=== PATIENT | female | born 1935 | race Caucasian/White ===

== ENCOUNTER 2017-03-11 17:14 | Emergency (ER) | payer MEDICARE ==
[~2017-03-11] VITALS: Ht 154.9 cm; Wt 57.7 kg
[~2017-03-11 17:14] MED LIST: ASC500 PO; BILB1CAP PO; CALC-176 PO; CHOL10008 PO; DICL75TA PO; ESTROGEL TOP; FLAX100031 PO; GLUC-120 PO; MULT-64 PO; NITR0.4T SL
[2017-03-11 17:29] VITALS: BP 132/73; PULSE 68; RESP 16; O2SAT 99
[2017-03-11 17:38] LABS: BASOPHILS % (AUTO) 0.4 % (0-3); EOSINOPHILS % (AUTO) 2.9 % (0-5); MONOCYTES % (AUTO) 8.4 % (4-12); Mean Corpuscular Hemoglobin 31.5 pg (27.0-35.0); Mean Corpuscular Volume 95.5 fL (81-100); NEUTROPHILS % (AUTO) 43.3 % (40-74); Platelet Count 203 bil/L (150-400)
[2017-03-11 18:00] VITALS: BP 128/62; PULSE 66; RESP 16; O2SAT 97
[2017-03-11 18:09] LABS: TROPONIN T < 0.010 ug/L (0.0-0.011)
--- NOTE | 2017-03-11 18:12 | ED.REPORT ---
HPI-General Illness Date of Service Mar 11, 2017 ED Provider: Dr. Cason Pt is an 81 y/o female w/ a hx of hyperlipidemia presenting to the ED via EMS w / her due to an episode of severe epigastric/RUQ pain radiating upward into the chest which lasted about 1 hour and occurred at 16:00 today. She describes the pain as a constant tightness. At time of onset she was sitting in a chair at rest. Her pain is now completely resolved. The patient ate about prior to the pain, has never experienced it before, and it is not exacerbated or relieved by anything. She denies SOB. Pt denies history of GERD, gastric ulcers, new medications. She denies diarrhea. The only medication she takes is for cholesterol. The only abdominal surgery she has had was a hysterectomy. Nursing Notes Stated Complaint: EPIGASTRIC PAIN Chief Complaint: Chest Pain Nursing Notes Reviewed: Yes Allergies: Uncoded Allergies: SHELLFISH (Allergy, Unknown, 03/11/17) SULFA (Allergy, Unknown, 03/11/17) Scheduled ([Estrogel]) 2 GM TOP 3XW Ascorbic Acid-Expunged Drug, Do Not Renew! (Vitamin C-Expunged Drug, Do Not Renew!) 500 Mg Tablet 500 MG PO DAILY Bilberry (Bilberry Extract) 1 Each Capsule 100 MG PO BID Cash Carb/Vitamin D3-Expunged, Do Not Renew! (Calcium 500+D -Expunged, Do Not Renew!) 1 Each Tablet 1 EACH PO BID Cholecalciferol-Expunged Drug, Do Not Renew! (Vitamin D3-Expunged Drug, Do Not Renew!) 1,000 Unit Tab.chew 1,000 UNIT PO DAILY Diclofenac-Expunged Drug, Do Not Renew! (Diclofenac-Expunged Drug, Do Not Renew! ) 75 Mg Tablet.dr 75 MG PO BID Flaxseed Oil (Flax Seed Oil) 1,000 Mg Capsule 1,300 MG PO BID Gluc 2KCL/Chondr/Rey Hy/Hy Ac (Glucosamine & Chondroitin Cap) 1 Each Capsule 1 EACH PO BID Multivitamins-Expunged Drug, Do Not Renew! (Multivitamins-Expunged Drug, Do Not Renew!) 1 Each Tab.chew 1 EACH PO DAILY Scheduled PRN Nitroglycerin-Expunged Drug, Do Not Renew! (Nitroglycerin SL-Expunged Drug, Do Not Renew!) 0.4 Mg Tab.subl 0.4 MG SL PRN General Time Seen by MD: 18:11 Chief Complaint Abdominal pain Hx Obtained From: Patient Arrived By: Walk-in Sudden in Onset?: Yes Onset Occurred: 1 - 4 hours ago Symptom Duration: 46 - 59 minutes Location: : Abdomen Quality: Painful Severity: Current: No pain currently Severity: Maximum: Severe Similar Sx Previous: No Past Medical History Past Medical History Hyperlipidemia Diverticulitis Arthritis Past Surgical History Hysterectomy Smoking History Unknown if Ever Smoker Ambulatory Status Independent Review of Systems Full Review of Systems Constitutional: Denies: Chills, Fever Respiratory: Reports: Shortness of breath, Denies: Non-productive cough Cardiovascular: Reports: Chest pain GI: Reports: Abdominal pain, Denies: Bloody/tarry stool, Constipation, Diarrhea, Nausea, Vomiting Female: Denies: Dysuria, Flank pain Complete sys rev & neg: except as marked. Physical Exam Vital Signs Vital Signs Date Time Temp Pulse Resp B/P Pulse Ox O2 Delivery O2 Flow Rate FiO2 03/11/17 20:56 36.4 67 14 138/67 98 Room Air 03/11/17 19:00 70 14 141/70 96 Room Air 03/11/17 18:00 66 16 128/62 97 Room Air 03/11/17 17:29 36.8 68 16 132/73 99 Room Air Initial VS: Reviewed, Vital signs normal Head / Eyes: Atraumatic, Normocephalic, PERRL ENT: Mucous membranes moist, Conjunctiva normal, No scleral icterus Neck: Supple, Full range of motion Cardiovascular: Regular rate & rhythm, Heart sounds normal, Intact distal pulses Extremities: Vascular intact, Neuro intact, No swelling, No tenderness Skin: Warm, Dry, No cyanosis Neurologic: Alert, Oriented, Nonfocal Psychiatric: Mood/affect normal, Behavior normal, Normal thought content General/Constitutional: Awake, Alert, No acute distress, Well appearing, Well developed, Well hydrated, Well nourished, Cooperative, Not toxic appearing Respiratory / Chest: Breath sounds NL, Breath sounds = bilat, No respiratory distress, No rales, No rhonchi, No wheezing, No retractions, No stridor, No chest tenderness Abdomen: Atraumatic, Soft, Non-tender, No guarding, No rebound, BS normoactive , No distention, No palpable mass Tenderness/Guarding/Rebound: Negative: Lacy's sign positive Interpretation & Diagnostics Interpretation & Diagnostics: US abdomen: IMPRESSION: Cholelithiasis however no other sonographic criteria for acute cholecystitis. Please correlate clinically and with LFTs. Dictated by: Jeremias Sanchez M.D. on 03/11/2017 at 19:46 Approved by: Jeremias Sanchez M.D. on 03/11/2017 at 19:48 Lab Results Interpretation Result Diagram: 03/11/17 1734 03/11/17 1734 Test 03/11/17 17:34 03/11/17 19:00 White Blood Count 5.6th/mm3 (3.8-10.1) Red Blood Count 4.26mil/mm3 (3.90-5.20) Hemoglobin 13.4g/dL (12.0-15.6) Hematocrit 40.7% (35.0-46.0) Mean Corpuscular Volume 95.5fL (81-100) Mean Corpuscular Hemoglobin 31.5pg (27.0-35.0) Mean Corpuscular Hemoglobin Concent 32.9% (32.0-37.0) Red Cell Distribution Width 13.2% (12.3-15.4) Platelet Count 203bil/L (150-400) Neutrophils (%) (Auto) 43.3% (40-74) Lymphocytes (%) (Auto) 44.8% (14-46) Monocytes (%) (Auto) 8.4% (4-12) Eosinophils (%) (Auto) 2.9% (0-5) Basophils (%) (Auto) 0.4% (0-3) Sodium Level 142mEq/L (134-144) Potassium Level 4.0mEq/L (3.5-5.2) Chloride Level 102mEq/L (97-108) Carbon Dioxide Level 25mmol/L (18-29) Blood Urea Nitrogen 31mg/dL (8-27) Creatinine 0.61mg/dL (0.57-1.00) Estimat Glomerular Filtration Rate 135mL/min (>59) Glucose Level 106mg/dL (60-99) Calcium Level 9.6mg/dL (8.5-10.1) Magnesium Level 2.2mg/dL (1.6-2.6) Total Bilirubin 0.6mg/dL (0.0-1.2) Aspartate Amino Transf (AST/SGOT) 118U/L (0-50) Alanine Aminotransferase (ALT/SGPT) 40U/L (0-32) Alkaline Phosphatase 74U/L (25-165) Total Protein 7.1g/dL (6.4-8.4) Albumin 4.2g/dL (3.4-5.0) Troponin T < 0.010ug/L (0.0-0.011) ECG Interpretation ECG Interpretation: Sinus rhythm rate [address] Borderline [address] pattern No ST or T changes No prior available for comparison Time: 18:31 Interpreted by: ED physician Normal ECG Interpretation: Normal rate, Normal sinus rhythm, No acute ischemic changes, Normal axis, Normal intervals, Adequate tracing X-Ray Chest Interpretation Chest Xray Interpretation: IMPRESSION: No acute disease Dictated by: Jeremias Sanchez M.D. on 03/11/2017 at 18:29 Approved by: Jeremias Sanchez M.D. on 03/11/2017 at 18:30 View: Portable, 1 view Interpretation / Wet Read by: Interpret - Radiologist Re-Eval/Medical Decision Med Decision/Clinical Course Pt is an 81 y/o female w/ a hx of hyperlipidemia presenting to the ED via EMS w / her due to an episode of severe epigastric/RUQ pain radiating upward into the chest which lasted about 1 hour and occurred at 16:00 today. Here in the emergency department the patient is afebrile, hemodynamically stable in no apparent distress. Abdominal examination is completely benign. Presentation seems biliary in nature but differential diagnosis includes acute coronary syndrome. Presentation unconvincing for pulmonary embolism. GERD/gastritis is another possibility Based upon examination my suspicion for acute surgical process is very low. Meds given: GI cocktail. Thereafter, patient reported significant subjective improvement. Labs notable as below: CBC:Unremarkable CMP: Notable for BUN of 31, creatinine of 0.61, AST 118, ALT 40, alk phosphate 74, total bili 0.6 Serial troponins were negative EKG: Sinus rhythm rate 68 Borderline RBBB pattern No ST or T changes No prior available for comparison Normal rate, Normal sinus rhythm, No acute ischemic changes, Normal axis, Normal intervals, Adequate tracing Chest x-ray: IMPRESSION: No acute disease Based on concern for acute biliary process right upper quadrant ultrasound obtained as below: Cholelithiasis however no other sonographic criteria for acute cholecystitis. Please correlate clinically and with LFTs. Given patient's advanced age and mildly elevated transaminases patient was seen and evaluated by general surgeon Dr. Ortiz. He recommends discharge and will arrange for outpatient clinic follow-up. Serial abdominal examinations remained benign. I am reassured by EKG and serial negative troponins at presentation is not cardiac in nature. Patient is now feeling much better and I do not feel that hospitalization or acute interventions are indicated. Prior to discharge follow-up and return precautions were reviewed in detail with the patient who verbalized understanding and agreement with the plan. The patient was discharged in stable condition. Time of Eval: 20:45 Re-Evaluation/Progress Note: Pt rechecked. Informed pt of plan for treatment. Pt understands and agrees with plan for treatment. F/U instructions and RTER warnings given. All questions addressed. Consultation : Referral / Consult Name: Brad Ortiz MD Consulted With: Surgeon Call Returned at: 20:44 Rubber Tester: Will see patient, Agrees with eval, Agrees with plan Note: Evaluated pt in the ED. Recommended dc and f/u in clinic. Counseled Regarding: Diagnosis, Lab results, Need for follow-up, When/why to return to ED Discharge & Departure Primary Impression: Cholelithiasis Cholelithiasis location: gallbladder Cholecystitis presence: without cholecystitis Biliary obstruction: without biliary obstruction Qualified Code : K80.20 - Calculus of gallbladder without cholecystitis without obstruction Additional Impressions: Biliary colic Epigastric pain Right upper quadrant pain Elevated transaminase level Disposition: Home Discharge Condition All VS Reviewed: Yes Condition: Stable Patient Instructions: Gallstones (ED) Additional Instructions: Thank you for seeking care at the emergency room. It is difficult for us to make definitive diagnoses in the ED but we believe that you are experiencing pain due to gallstones. Our primary goal today in the ED was to evaluate you for any life-threatening conditions. Your evaluation was reassuring. You should follow-up with the surgery clinic next week. Call the referral number below to set up an appointment. You should return to the ED immediately if you develop fevers, vomiting, worsening pain, lightheadedness, weakness or any other concerning signs or symptoms. Thank you for letting us partake in your care today. Referrals: Kiel Srivastava DO (PCP) Brad Ortiz MD Attestation Portions of this note were transcribed by Uziel Murguia. I, Dr. Cason personally performed the history, physical exam and medical decision-making; I reviewed and confirmed the accuracy of the information in the transcribed note. Signed by Soo Shell, 03/11/17 - [id number] copies to: Kiel Srivastava DO; Brad Ortiz MD, Beck O MD Mar 11, 2017 18:12 UZIEL MURGUIA Mar 11, 2017 18:32
[2017-03-11 18:19] LABS: Magnesium 2.2 mg/dL (1.6-2.6)
--- NOTE | 2017-03-11 18:32 | DRSVH ---
PROCEDURE: X-RAY CHEST ONE VIEW, PORTABLE ([id number]) INDICATIONS: cp TECHNIQUE: One view of the chest was acquired. COMPARISON: None. FINDINGS: Surgical changes and devices: None. Lungs and pleura: No pleural effusions or pneumothorax. Lungs are clear. Mediastinum: Mediastinal contours appear normal. Heart size is normal. Bones and chest wall: No suspicious bony lesions. Overlying soft tissues appear unremarkable. IMPRESSION: No acute disease Dictated by: Jeremias Sanchez M.D. on 03/11/2017 at 18:29 Approved by: Jeremias Sanchez M.D. on 03/11/2017 at 18:30
[2017-03-11] MEDS ORDERED: LidocaineVisc 2%:Antacid 1:1 10 mL Syringe PO ONE (18:45)
[2017-03-11 19:00] VITALS: BP 141/70; PULSE 70; RESP 14; O2SAT 96
--- NOTE | 2017-03-11 19:50 | DRSVH ---
PROCEDURE: US ABDOMEN INDICATIONS: ruq pain TECHNIQUE: Real-time scanning was performed of the abdominal and retroperitoneal organs, with image documentatio n. COMPARISON: None. FINDINGS: Liver length: 12.41 cm Gallbladder Wall Thickness: 1.20 mm CHD: Not seen CBD: 3.90 mm Spleen length: 8.20 cm Right kidney length: 8.99 cm Left kidney length: 9.33 cm Aorta(Proximal): 2.25 cm Aorta(Mid): 1.73 cm Aorta(Distal): 1.58 cm RCIA: 1.29 cm LCIA: 1.29 cm Liver: Liver is normal in size and homogeneous in echotexture. Gallbladder: 2 gallstones are present measuring up to 2.3 x 1.7 x 2.0 cm. No sonographic Lacy's sig n identified. No pericholecystic fluid. Biliary ducts: Intrahepatic bile ducts are non-dilated. Extrahepatic bile duct caliber is normal. Normal is 6-7 mm or less in diameter, or 10 mm or less post-cholecystectomy. Pancreas: Visualized portions of the pancreas are sonographically normal. Spleen: Spleen is normal in size and homogeneous in echotexture. Kidneys: Kidneys are normal in size and echotexture. No hydronephrosis or nephrolithiasis. No dima d masses. Aorta: Visualized aorta is normal in caliber at less than 3 cm. Iliacs: Proximal common iliac arteries are normal in caliber at less than 2.5 cm. IVC: Intrahepatic inferior vena cava is patent. Miscellaneous: No free abdominal fluid. IMPRESSION: Cholelithiasis however no other sonographic criteria for acute cholecystitis. Please correlate clinic ally and with LFTs. Dictated by: Jeremias Sanchez M.D. on 03/11/2017 at 19:46 Approved by: Jeremias Sanchez M.D. on 03/11/2017 at 19:48
[2017-03-11 20:56] VITALS: BP 138/67; PULSE 67; RESP 14; O2SAT 98
--- NOTE | 2017-03-11 21:24 | CONS ---
[address] [address] CONSULTATION REPORT PATIENT: ALEX RILEY : 1935 MR#: [id number] ADMIT: 03/11/2017 JOB ID: [id number] DATE OF SERVICE: 03/11/2017 REQUESTED BY: Alex Cason MD. HISTORY OF PRESENT ILLNESS: An 81-year-old female, who had onset of epigastric pain that was severe and radiated into her back. It was not associated with nausea and vomiting. She had never had this before. Her , who has had symptomatic gallbladder, thought it was gallstones and brought her to the emergency department. By the time she got to the emergency department and was evaluated by Dr. Cason, the pain had resolved. An abdominal ultrasound was obtained which demonstrates two gallstones that measure up to 2.3 x 1.7 x 2.0 cm. There is no sonographic Lacy sign, no pericholecystic fluid. Her bile ducts were normal. She had a mild elevation of her AST and ALT but her bilirubin was normal and her pain has not recurred. Again, she has never had this pain. She has no history of abdominal operations. She is very healthy. PAST MEDICAL HISTORY: Illnesses: None. ALLERGIES: 1. SHELLFISH. 2. SULFA. SOCIAL HISTORY: . She and her have four children. They have retired out to [facility]. FAMILY HISTORY: Negative for gallstones, although her had gallstones and had a cholecystectomy. REVIEW OF SYSTEMS: Denies nausea, vomiting, hematemesis, melena, jaundice, acholic stools, pancreatitis, dark urine. No cardiopulmonary symptoms, headaches, loss of consciousness, focal motor or sensory symptoms. PHYSICAL EXAMINATION: Pleasant, alert, cooperative, no distress. BMI 24. Temperature 36.8, brachial blood pressure 141/70, pulse 70 respiratory rate 14, O2 sat room air 96%. HEENT: PERRLA, EOMI, no scleral icterus. Neck: No appreciable masses. Lungs: Clear. Cardiac exam: Regular rhythm. Abdomen: Soft, nontender. Extremities: No edema. Skin: Nonjaundiced. Neurologic exam: Oriented x3, with cranial nerves 2-12 intact. Moves all extremities. Gait not tested. LABORATORY RESULTS: White blood cell count 5.6, hematocrit 40.7, platelet count 203,000. Electrolytes, creatinine are normal. Glucose 106. Bilirubin 0.6. AST 118, ALT 40, alkaline phosphatase 74. Two troponins less than 0.010. Chest x-ray: No acute disease. Abdominal ultrasound: Two gallstones. No sonographic Lacy sign. No pericholecystic fluid. Normal bile ducts. The only abnormality is her cholelithiasis. IMPRESSION: Biliary colic. Now resolved. It was her 1st episode. She does not need an emergent operation. She does not need any imaging tonight. She does not need to be admitted. My office will contact her to schedule her to come in for scheduling for a laparoscopic cholecystectomy and cholangiograms. I discussed the operation and risks which include but are not limited to bleeding, infection, bile leak, bile ductal injury, postoperative diarrhea. I discussed the typical recovery. She and her are both very comfortable with this plan. I expressed this with Dr. Cason.
== END 2017-03-11 21:04 | disposition home or self-care (01) ==
LOC: SED 17:14
DX: K80.70 Calculus of gallbladder and bile duct without cholecystitis without obstruction (principal); R74.0 Nonspecific elevation of levels of transaminase and lactic acid dehydrogenase [LDH]; E78.5 Hyperlipidemia, unspecified

== ENCOUNTER → 2017-04-18 | Day surgery (SDC) | payer MEDICARE ==
[2017-04-18] VITALS (8 sets, daily range): BP systolic 124–139; BP diastolic 48–65; PULSE 62–73; RESP 13–17; O2SAT 97–99
[~2017-04-18] VITALS: Ht 154.9 cm; Wt 55.8 kg
[~2017-04-18] MED LIST changes: -ASC500 PO; -BILB1CAP PO; +Bupivacaine-MPF 0.5% 30 mL Inj INFILTRATE ONE; -CALC-176 PO; -CHOL10008 PO; +CeFAZolin 2 Gm/50 mL D5W IV Premix IV ONE; +CeFAZolin Inj 2 gm / 50mL D5W IV ONE; -DICL75TA PO; +Dexamethasone 4 mg/mL Inj IVPUSH PRN; +EPHEDrine Sulfate 50 mg/mL Inj IVPUSH PRN; -ESTROGEL TOP; -FLAX100031 PO; -GLUC-120 PO; +HYDROmorphone 1 mg/mL Inj IVPUSH PRN; +Heparin 5,000 Unit/mL Inj ONE; +Heparin 5,000 Unit/mL Inj SUBQ ONE; +Iopamidol-300 50 mL Inj INJ ONE; +Ketamine 10 mg/mL 20 mL Inj ONE; +Lactated Ringer's 1,000 ML IV ONE; +Lactated Ringer's 1,000 ML IV SCH; +Lactated Ringer's 500 ML IV PRN; -MULT-64 PO; +MetoCLOpramide 5 mg/mL 2 mL Inj IVPUSH PRN; -NITR0.4T SL; +Ondansetron 2 mg/mL 2 mL Inj IVPUSH PRN; +Ondansetron 2 mg/mL 2 mL Inj ONE; +PRAV20TA2 PO; +Phenylephrine 10,000 mCg/mL Inj IVPUSH PRN; +Propofol 10,000 mCg/mL 20 mL Inj ONE; +Rocuronium 10 mg/mL 5 mL Inj ONE; +fentaNYL-PF 50 mCg/mL 2 mL Inj IVPUSH PRN; +fentaNYL-PF 50 mCg/mL 2 mL Inj ONE; +oxyCODONE-Acetamin 5-325 mg Tablet PO PRN
--- NOTE | 2017-04-18 07:12 | PCM.HPANE ---
Patient Data Surgeon Admitting Provider: Attending Provider:Brad Ortiz MD Primary Care Physician:Kiel Srivastava DO Other Provider:Marge Isidroingham Anesthesia Reason for Visit Cholecystitis Ht/WT & BMI Height (Feet): 5 Height (Inches): 1 Weight (Kilograms): 57.38 Body Mass Index 23.00 Allergies Coded Allergies: oxycodone (Verified Allergy, Intermediate, Hallucinations, 04/18/17) PT TOOK PERCOCET AND BEGAN SEEING THINGS. PT REQUESTS OXYCODONE TO BE ADDED TO HER "ALLERGY" LIST. PT CAN TAKE TYLENOL, JUST NOT OXYCODONE. Sulfa (Sulfonamide Antibiotics) (Verified Allergy, Unknown, trouble breathing, 04/18/17) Uncoded Allergies: SHELLFISH (Allergy, Unknown, cannot recall reaction, 04/12/17) Past Anesthesia History Anesthesia History: Denies:: Abnormal Airway (prior hx of cleft palate repair) , Anesthesia Reactions, Difficult Intubation, Fam Anesthesia Reaction Diabetes History Hx Diabetes?: No MRSA MRSA: No Medications Hypertension Medication: No Home Meds Incl Beta Nikki: No Reported Medications Pravastatin 20 Mg [id number] Mg PO DAILY Ref 0 04/12/17 Discontinued Reported Medications Multivitamins-Expunged Drug, Do Not Renew! 1 Each Tab.chew1 Each PO DAILY 08/03/11 Cholecalciferol-Expunged Drug, Do Not Renew! (Vitamin D3-Expunged Drug, Do Not Renew!)1,000 Unit Tab.chew1,000 Unit PO DAILY 08/02/11 Ascorbic Acid-Expunged Drug, Do Not Renew! (Vitamin C-Expunged Drug, Do Not Renew!)500 Mg [id number] Mg PO DAILY 08/02/11 Nitroglycerin-Expunged Drug, Do Not Renew! (Nitroglycerin SL-Expunged Drug, Do Not Renew!)0.4 Mg Tab.subl0.4 Mg SL PRN 08/02/11 Gluc 2KCL/Chondr/Rey Hy/Hy Ac (Glucosamine & Chondroitin Cap)1 Each Capsule1 Each PO BID 08/02/11 Flaxseed Oil (Flax Seed Oil)1,000 Mg Capsule1,300 Mg PO BID 08/02/11 [Estrogel] No Conflict Check2 Gm TOP 3XW 08/02/11 Diclofenac-Expunged Drug, Do Not Renew! 75 Mg Tablet.dr75 Mg PO BID 08/02/11 Cash Carb/Vitamin D3-Expunged, Do Not Renew! (Calcium 500+D -Expunged, Do Not Renew!)1 Each Tablet1 Each PO BID 08/02/11 Bilberry (Bilberry Extract)1 Each [id number] Mg PO BID 08/02/11 History History of ENT Problems?: Yes HEENT History: Positive for:: Cataracts (forming - not surgically treated ) Denies:: Abnormal Airway (prior hx of cleft palate repair) Difficult Intubation Dysphagia Hearing Problem Sinus Problem TMJ Denture Type: None Teeth Condition: Within Normal Limits Hx of Heart Problems?: No Cardiovascular History: Denies:: AICD Atrial Fibrillation Chest Pain Congestive Heart Failure Heart Murmur Hypertension Irregular Heartbeat Pacemaker Hx of Respiratory Problem?: No Respiratory History: Positive for:: Dyspnea Denies:: Asthma COPD Emphysema Oxygen Administration Pneumonia Tuberculosis Use of C-PAP Machine Use of Inhalers / NEBS Hx Neurologic Problems?: No Neurological History: Denies:: Alzheimer's Disease CVA Dementia Dizziness Headaches Multiple Sclerosis Parkinson's Disease Seizures TIA Hx of GI Problems?: Yes Hx of Problems?: No Genitourinary History: Denies:: Kidney Stones Urinary Tract Infection Female Hx: Denies:: Currently (hysterectomy) Problems with Breasts? Skin History: Denies:: History Skin Disorders? Pressure Ulcers Hx Musculoskeletal Problems?: Yes Musculoskeletal History: Positive for:: Osteoarthritis (knees) Denies:: Back Injury Degenerative Joint Fibromyalgia Joint Replacement Musculoskeletal Trauma Myasthenia Gravis Systemic Lupus Hx of Psycho/Social Problems?: No Psycho Social History: Denies:: Anxiety Hx Depression Hx Surgeries?: Yes (hyst,cleft palate) Hx Any Other Health Problems?: Yes Other History: Denies:: Cancer Hospitalization Thyroid Disease History Blood Transfusions: Positive for:: Accept Blood Products? Blood Transfusions (prior hx of with surgery) Denies:: Blood Transfuse Reaction Hx Diabetes: No Hx Alcohol Use: NoHx Substance Use: No Smoking Status: Unknown if Ever Smoker Have You Smoked inLast 12 mo: No Stop/Bang Treated for Sleep Apnea?: No Do You Have a CPAP Machine?: No S-Snoring: Do You Snore Loudly: No T-Tired: feel tired, fatigued: No O-Obsered: Observed not breath: No P-Blood Pressure: treated: No B- Body Mass Index > 35 kg/m2: No A- Age over 50: Yes N- Neck Large Circumference: No G- Gender Male: No GRACE Total Score: 1 GRACE Risk Assessment: Low Risk, <3 Yes Risk Assessment Category Category 1A: Patient has history of documented sleep apnea, and HAS NOT received any narcotic, sedative or anesthesia administration during this stay. Category 1B: Patient has history of documented sleep apnea, and HAS received any narcotic , sedative or anesthesia administration during this stay Category 2: Patient has SUSPECTED Obstructive Sleep Apnea, and HAS received any narcotic , sedative or anesthesia administration during this stay. Category 3: Patient has SUSPECTED Obstructive Sleep Apnea and HAS NOT received narcotic, sedative or anesthesia administration during this stay. Category 4: Outpatient in Procedural Areas with known sleep apnea or who screen positive for High Risk via the STOP/BANG questionnaire. Exam Exam General Appearance: Alert, Oriented X3, Cooperative, No Acute Distress HEENT/AIRWAY: MP 2 Lungs: Clear to Auscultation, Normal Air Movement Heart: Exam Unremarkable, Regular Rate/Rhythm, No Murmurs/Rubs/Gallops Plan Impression Patient chart reviewed, patient interviewed and anesthestic plan with risks, benefits, and alternatives discussed, and informed consent obtained. ASA Physical Status: ASA2 Mod Systemic Disease Anesthetic Plan: GA Bene/Risks/Altern/Consents: Yes HP Complete Prior to Induction: Yes Gian Ledesma MD Apr 18, 2017 07:12
--- NOTE | 2017-04-18 16:23 | PCM.DISURG ---
Surgical Discharge Instruction Date of Service Apr 18, 2017 Dates of Hospitalization Date of Hospital Admission Providers Admitting Physician: Primary Care Physician: Kiel Srivastava DO Attending Physician: Brad Ortiz MD Diet Discharge Diet: No restrictions Activity Discharge Activity-General: Be up and about, Activity as pain allows, No lifting >15 pounds for 2 weeks, No driving while taking narcotic Dressing and Incisional Care Dressing Care: Allow Steri Stripes to fall off, Remove outer dressing after 24 hrs Hygiene: May shower after (24 hours) Follow Up Plan Follow Up Plan Follow up in the general surgery clinic in 2-4 weeks. Call at any time with questions or concerns. Call your provider for: Fever, Chills, Increasing abdominal pain, Nausea, Vomiting, Wound redness, Increasing wound pain, Discharge @ incision, pus discharge Fermin Devries MD Apr 18, 2017 16:23
--- NOTE | 2017-04-18 17:00 | DRSVH ---
PROCEDURE: X-RAY OPERATIVE CHOLANGIOGRAM ([id number]) INDICATIONS: [facility] OR Daily Case Record Report for up to 04/10/17 COMPARISON: None. FINDINGS: Biliary ducts: The surgeon injected contrast into the biliary ducts after cannulation of the cystic duct stump. Visualized intra- and extrahepatic bile ducts are normal in caliber, without strictures. No intraluminal filling defects to suggest retained ductal stones or sludge. No evidence for iatro genic ductal injury. Duodenum: Contrast flows promptly through the sphincter of Oddi into the duodenum, which appears nor mal in caliber. IMPRESSION: Normal operative cholangiogram. Dictated by: Ariel Moise [facility] Interpreted: Arnaldo Leiva MD on 04/18/2017 at 15:42 Approved by: Arnaldo Leiva M.D. on 04/18/2017 at 16:58
--- NOTE | 2017-04-18 21:05 | OP ---
[address] [address] OPERATIVE REPORT PATIENT: ALEX RILEY : 1935 MR#: [id number] ADMIT: 04/18/2017 JOB ID: [id number] DATE OF SURGERY: 04/18/2017 PREOPERATIVE DIAGNOSIS(ES): Chronic calculous cholecystitis. POSTOPERATIVE DIAGNOSIS(ES): Chronic calculous cholecystitis. PROCEDURE: 1. Laparoscopic cholecystectomy and cholangiograms. 2. Intraoperative fluoroscopy with interpretation. SURGEON: Brad Ortiz MD. MINE PROMOTOR: Jarad Woodruff MD. INDICATIONS: An 81-year-old female who was seen in the emergency department about a month ago with biliary colic. She was identified as having gallstones. She was then seen as an outpatient and scheduled for a laparoscopic possible open cholecystectomy and cholangiograms. FINDINGS: She had chronic calculous cholecystitis. Cholangiograms were normal. The intrahepatic ducts, extrahepatic ducts were all normal without evidence of filling defects. There was free flow into the duodenum. DESCRIPTION OF PROCEDURE: At the beginning and end of the operation, the SCOAP checklist was completed. A general endotracheal anesthetic was induced. She had on pneumatic hose. She received antibiotics and using ChloraPrep, she was prepped and draped in usual fashion. All trocar sites were infiltrated with 0.5% plain bupivacaine. An infraumbilical incision was made. The abdominal cavity was entered. A cannula inserted. The abdomen insufflated with CO2. Accessory ports were placed under direct visualization in the upper midline and two in the right upper quadrant. All were 5 mm ports. The fundus was elevated and retracted superiorly. There were adhesions between the duodenum and the base of the gallbladder, and these were divided on the gallbladder side well away from the duodenum without evidence of duodenal injury. After freeing up the duodenum, the infundibulum was retracted inferiorly and laterally. A Calot's node could be identified and just deep to that coursing up the anterior wall of the gallbladder was the cystic artery. This was exposed. The cystic duct was then exposed at its origin from the gallbladder, and the plate was released and the critical view established. The artery was then divided after placing two clips proximally and one distally. A clip was then placed right at the origin of the cystic duct onto the gallbladder. A cholangiocatheter was then inserted into a small incision in the cystic duct and cholangiograms were obtained and interpreted with results as stated above. The cholangiocatheter was removed and two clips were placed proximally in the cystic duct and it was divided. The gallbladder was dissected away from the liver using cautery. The gallbladder was placed into a specimen bag. The subhepatic and right subphrenic spaces were irrigated with saline. There was a small amount of bleeding that stopped spontaneously. The trocars were removed without evidence of bleeding. The umbilical fascial incision was closed with 0-Vicryl. Skin incisions with 4-0 Vicryl. Steri-Strips and Band-Aids were applied. The estimated blood loss was 10 cc. No apparent complications. The final sponge, needle and instrument counts were announced as correct, and she was returned to recovery in stable condition. Critical assistance was provided by Jarad Woodruff M.D.
--- NOTE | 2017-04-19 07:59 | PCM.ANEP1 ---
Post Anesthesia PACU Phase 1 Assessment Anesthetic Administered: GA Level of Alertness: Awake, talking MENDEZ's with Equal Strength: Yes Pain: No Nausea or Vomiting: No CV Function & Hydration Stable: Yes Airway Device: Oralpharangeal Airway Oxygen Delivery: Simple Mask Lungs: Clear to Auscultation, Normal Air Movement Dermatome Level: Full Sensation PACU Phase 2 Assessment Complications: No Follow up Care: No Patient Instructions Provided: N/A Gian Ledesma MD Apr 19, 2017 07:59
--- NOTE | 2017-04-20 14:11 | PATH ---
SURGICAL PATHOLOGY Attending Physician:Nely Lee CASE STATUS: Signed Out PATIENT NAME: ALEX RILEY PID: [id number] : 1935 DATE COLLECTED:04/18/2017 00:00 SPECIMEN: Gallbladder CLINICAL HISTORY: CHOLECYSTITIS 1). GALLBLADDER FINAL DIAGNOSIS: Gallbladder, Laparoscopic Cholecystectomy: Chronic cholecystitis and cholelithiasis. ICD10: K80.6 GROSS DESCRIPTION: The specimen is received in one formalin filled container labeled with the patient's name, sublabeled "gallbladder" and consists of an intact 10.0 x 3.0 x 3.0 CM gallbladder. The serosa is smooth. The wall is 0.2-0.6 CM in thickness. The mucosa is a green cardona in color. The lumen contains a dark green thick mucoid material and 5 dark cardona brown to brown-black calculi which range in size from 0.3-3.0 CM in greatest dimension. 5 publications sales representative sections are sedated in one cassette. 04/19/2017MS ICD-9 CODES: CPT CODES: 1: 18276 Electronically Signed Out Raya Smiley MD [facility] [address], [place] [address] Technical component performed at [facility], [address] [place] [address] Ave[address], [place], [address]
== END | disposition home or self-care (01) ==
LOC: SAS 09:53
PROVIDERS: ATTEND Surgery
DX: K80.10 Calculus of gallbladder with chronic cholecystitis without obstruction (principal); Z79.899 Other long term (current) drug therapy; Z88.2 Allergy status to sulfonamides; Z88.5 Allergy status to narcotic agent; Z91.013 Allergy to seafood
CPT/HCPCS: 47563; 74300; J0690; J1644; J2405; J3010; J7120; Q9967